=== PATIENT | female | born 1990 | race Caucasian/White ===

== ENCOUNTER → 2020-10-29 13:19 | Outpatient (CLI) | payer OTHER, SELFPAY ==
--- NOTE | ~2020-10-29 | US_ITS ---
US breast LT complete DATE: 10/29/2020 13:41 INDICATION: Left breast pain. Left axillary soft tissues mass. TECHNIQUE: High-resolution ultrasound imaging of the left breast and left axilla COMPARISON: 10/23/2011 left breast ultrasound FINDINGS: Normal-appearing 8.4 x 22 millimeter left axillary lymph node. No suspicious left breast mass or shadowing is evident. No cyst or other significant sonographic find ing is noted. IMPRESSION: BI-RADS Category 2: Benign Recommendation: Routine mammographic screening beginning at age 40 Reviewed, dictated and finalized at [facility]. Reviewed, dictated and finalized at [facility]. [employer]
== END ==
PROVIDERS: Visit Provider Nurse Practitioner
DX: N64.4 Mastodynia (principal)
CPT/HCPCS: 76641